=== PATIENT | male | born 1960 | race African-American/Black ===

== ENCOUNTER 2016-11-18 17:55 | Inpatient (IN) | payer OTHER, BC ==
[2016-11-18] MEDS ORDERED: NORMAL SALINE 1000 ML 2,000 ML IV PRN (18:26)
--- NOTE | 2016-11-18 18:28 | ER Document Report ---
ED Medical Screen (RME) - General Chief Complaint: High Blood Sugar Stated Complaint: BLOOD SUGAR PROBLEM Time Seen by Provider: 11/18/16 18:26 Notes: Patient states he went to the ME today because he is feeling weak. The ME told him that his doctor is not and I referred him to another office. That office noticed that his labs showed some acidosis and some ketones in the urine. They also noticed that his sugar was approximately 450 so he was sent to the emergency department for further evaluation. Patient denies vomiting or diarrhea just states she has been feeling weak. Denies any pain. TRAVEL OUTSIDE OF THE [place] IN LAST 30 DAYS: No - Related Data Allergies/Adverse Reactions: No Known Allergies Allergy (Verified 11/18/16 17:59) Past Medical History - Past Medical History Cardiac Medical History: Reports: Hx Hypertension Renal/ Medical History: Denies: Hx Peritoneal Dialysis Physical Exam - Vital signs Vitals: Temp Pulse Resp BP Pulse Ox 97.7 F 96 14 117/73 98 11/18/16 18:00 11/18/16 18:00 11/18/16 18:00 11/18/16 18:00 11/18/16 18:00 Course - Vital Signs Vital signs: Temp Pulse Resp BP Pulse Ox 97.7 F 96 14 117/73 98 11/18/16 18:00 11/18/16 18:00 11/18/16 18:00 11/18/16 18:00 11/18/16 18:00
[2016-11-18 18:57] LABS: ABSOLUTE BASOPHILS # (AUTO) 0.1 10^3/uL (0.0-0.2); ABSOLUTE LYMPHOCYTES (AUTO) 1.6 10^3/uL (0.5-4.7); ABSOLUTE MONOCYTES (AUTO) 0.7 10^3/uL (0.1-1.4); ABSOLUTE NEUT (AUTO) 5.8 10^3/uL (1.7-8.2); BASOPHILS % (AUTO) 0.9 % (0-2); EOSINOPHILS % (AUTO) 0.1 % (0-6); HEMATOCRIT 45.1 % (37.9-51.0); HEMOGLOBIN 15.2 g/dL (13.5-17.0); HGB HCT DIFFERENCE 0.5; LYMPHOCYTES % (AUTO) 19.1 % (13-45); MEAN CORPUSCULAR HGB CONC 33.7 g/dL (32.0-36.0); MEAN CORPUSCULAR VOLUME 80 fl (80-97); MONOCYTES % (AUTO) 8.7 % (3-13); RED BLOOD COUNT 5.63 10^6/uL (4.35-5.55); RED CELL DISTRIBUTION WIDTH 14.5 % (11.5-14.0); SEGMENTED NEUTROPHILS % (AUTO) 71.2 % (42-78); WHITE BLOOD COUNT 8.1 10^3/uL (4.0-10.5)
--- NOTE | 2016-11-18 19:21 | ER Document Report ---
ED Blood Sugar Problem <BEVERLEY CHOWDARY - Last Filed: 11/18/16 21:25> - General Mode of Arrival: Ambulatory Information source: Patient TRAVEL OUTSIDE OF THE [place] IN LAST 30 DAYS: No <HARRY BUTLER - Last Filed: 11/18/16 21:27> - General Chief Complaint: High Blood Sugar Stated Complaint: BLOOD SUGAR PROBLEM Time Seen by Provider: 11/18/16 18:26 Notes: Patient is a 56 year old male who presents to the ED with complaints of increased frequency with urination and an increase in thirst x3 weeks. Patient states today he began feeling nauseous. (HARRY BUTLER) - Related Data Allergies/Adverse Reactions: No Known Allergies Allergy (Verified 11/18/16 17:59) Past Medical History - General Information source: Patient - Social History Smoking Status: Never Smoker Chew tobacco use (# tins/day): No Frequency of alcohol use: None Drug Abuse: None Family History: Reviewed & Not Pertinent - Past Medical History Cardiac Medical History: Reports: Hx Hypercholesterolemia, Hx Hypertension Endocrine Medical History: Reports: Hx Diabetes Mellitus Type 2 Renal/ Medical History: Denies: Hx Peritoneal Dialysis - Immunizations Hx Diphtheria, Pertussis, Tetanus Vaccination: Yes <HARRY BUTLER - Last Filed: 11/18/16 21:27> Review of Systems - Review of Systems Constitutional: No symptoms reported EENT: No symptoms reported Cardiovascular: No symptoms reported Respiratory: No symptoms reported Gastrointestinal: See HPI, Nausea Genitourinary: See HPI, Frequency Male Genitourinary: No symptoms reported Musculoskeletal: No symptoms reported Skin: No symptoms reported Hematologic/Lymphatic: No symptoms reported Neurological/Psychological: No symptoms reported <HARRY BUTLER - Last Filed: 11/18/16 21:27> Physical Exam <BEVERLEY CHOWDARY - Last Filed: 11/18/16 21:25> <HARRY BUTLER - Last Filed: 11/18/16 21:27> - Vital signs Vitals: Temp Pulse Resp BP Pulse Ox 97.7 F 96 14 117/73 98 11/18/16 18:00 11/18/16 18:00 11/18/16 18:00 11/18/16 18:00 11/18/16 18:00 - Notes Notes: GENERAL: Well-appearing, well nourished and in no acute distress. HEAD: Normocephalic, atraumatic. Eyes: Pupils equal, round, and reactive to light. Extraocular movements intact. ENT: Oral mucosa moist, tongue midline. NECK: Full range of motion. Supple without lymphadenopathy. LUNGS: Clear to auscultation bilaterally, no wheezes, rales, or rhonchi. No respiratory distress. HEART: Regular rate and rhythm. No murmurs, gallops, or rubs. ABDOMEN: Soft, non-tender. Morbidly Obese. Bowel sounds present in all 4 quadrants. EXTREMITIES: Normal ROM. No Edema. NEUROLOGICAL: Alert and oriented x3. Normal speech. No focal neurological deficits. PSYCH: Normal affect, normal mood. SKIN: Warm, dry, normal turgor. No rashes or lesions noted. (HARRY BUTLER) Course - Laboratory Result Diagrams: 11/18/16 18:45 11/18/16 20:02 <BEVERLEY CHOWDARY - Last Filed: 11/18/16 21:25> - Laboratory Result Diagrams: 11/18/16 18:45 11/18/16 20:02 - Consults Dr. Deshpande Time consulted: 21:24 <HARRY BUTLER - Last Filed: 11/18/16 21:27> - Vital Signs Vital signs: Temp Pulse Resp BP Pulse Ox 97.7 F 96 25 H 112/73 95 11/18/16 18:00 11/18/16 18:00 11/18/16 19:37 11/18/16 19:37 11/18/16 19:37 - Laboratory Laboratory results interpreted by ri: 11/18/16 11/18/16 11/18/16 18:35 18:45 18:45 RBC 5.63 H RDW 14.5 H Sodium Chloride Carbon Dioxide Anion Gap Glucose Hemoglobin A1c % > 14.0 H Calcium Urine Glucose (UA) >=500 H Urine Ketones 80 H Urine Blood SMALL H 11/18/16 20:02 RBC RDW Sodium 132.9 L Chloride 96 L Carbon Dioxide 12 L Anion Gap 25 H Glucose 437 H* Hemoglobin A1c % Calcium 10.7 H Urine Glucose (UA) Urine Ketones Urine Blood - Consults Dr. Deshpande Reason for consultation: 11/18/16 21:24 Discussed patient. Patient is accepted for admission to the [facility] (HARRY BUTLER) Discharge - Discharge Admitting Provider: Hospitalist Unit Admitted: [facility] <BEVERLEY CHOWDARY - Last Filed: 11/18/16 21:25> <HARRY BUTLER - Last Filed: 11/18/16 21:27> - Discharge Clinical Impression: Diabetic ketoacidosis Qualifiers: Diabetes mellitus type: type 2 Diabetes mellitus complication detail: without coma Qualified Code(s): E13.10 - Other specified diabetes mellitus with ketoacidosis without coma Hyperglycemia due to type 2 diabetes mellitus Qualifiers: Diabetes mellitus terminal worker insulin use: without terminal worker use Qualified Code(s ): E11.65 - Type 2 diabetes mellitus with hyperglycemia Referrals: ANA MARIA DELVALLE MD [Primary Care Provider] - Follow up as needed Scribe Documentation - Scribe Written by Scribe:: latha Loving 11/18/2016, 1917 acting as scribe for :: Yue <HARRY BUTLER - Last Filed: 11/18/16 21:27>
[2016-11-18 19:37] LABS: APPEARANCE,URINE CLEAR; BILIRUBIN,URINE NEGATIVE (NEGATIVE); GLUCOSE, URINE >=500 mg/dL (NEGATIVE); KETONES,URINE 80 mg/dL (NEGATIVE); LEUKOCYTE ESTERASE,URINE NEGATIVE (NEGATIVE); NITRITE,URINE NEGATIVE (NEGATIVE); PROTEIN,URINE NEGATIVE (NEGATIVE); URINE SPECIFIC GRAVITY 1.029; UROBILINOGEN,URINE NEGATIVE mg/dL (<2.0)
[2016-11-18] MEDS ORDERED: INSULIN REG, HUMAN 100 UNIT/ML 3 ML VIAL (PYX) IV ONE (20:13)
[2016-11-18 20:39] LABS: ALANINE AMINOTRANSFERASE 38 U/L (21-72); ALBUMIN 4.4 g/dL (3.5-5.0); ALKALINE PHOSPHATASE 89 U/L (38-126); ASPARTATE AMINO TRANSFERASE 17 U/L (17-59); BILIRUBIN,DIRECT 0.4 mg/dL (0.0-0.4); BILIRUBIN,TOTAL 0.6 mg/dL (0.2-1.3); BLOOD UREA NITROGEN 18 mg/dL (7-20); CALCIUM 10.7 mg/dL (8.4-10.2); CARBON DIOXIDE 12 mmol/L (22-30); CHLORIDE 96 mmol/L (98-107); CREATININE RESULT 1.17 mg/dL (0.52-1.25); TOTAL PROTEIN 7.2 g/dL (6.3-8.2)
[2016-11-18 20:46] LABS: ANION GAP 25 (5-19); SODIUM 132.9 mmol/L (137-145)
[2016-11-18 20:47] LABS: GLUCOSE 437 mg/dL (75-110)
[2016-11-18] MEDS ORDERED: NORMAL SALINE 1000 ML 1,000 ML IV ONE (21:18)
[2016-11-18] MEDS ORDERED: DEXTROSE 40% GEL 15 GM TUBE PO PRN ×2 (21:29)
[2016-11-18] MEDS ORDERED: NORMAL SALINE 1000 ML 1,000 ML IV PRN (21:29)
[2016-11-18] MEDS ORDERED: NORMAL SALINE 100 ML with INSULIN REGULAR, HUMAN 100 UNIT IV PRN ×2 (21:29)
[2016-11-18] MEDS ORDERED: GLUCAGON,HUMAN RECOMB 1 MG INJ IM PRN (21:29)
[2016-11-18] MEDS ORDERED: DEXTROSE 50%-WATER 25 GM/50 ML DISP.SYRIN IV PRN ×2 (21:29)
[2016-11-18 21:32] LABS: ADD ON TESTING BLD IN LAB ACKNOWLEDGE
[2016-11-18 21:41] LABS: MAGNESIUM 1.8 mg/dL (1.6-2.3)
--- NOTE | 2016-11-18 22:08 | RADIOLOGY REPORT (SQ) ---
EXAM DESCRIPTION: CHEST SINGLE VIEW COMPLETED DATE/TIME: 11/18/2016 9:43 pm REASON FOR STUDY: dka COMPARISON: June 2012 EXAM PARAMETERS: NUMBER OF VIEWS: One view. TECHNIQUE: Single frontal radiographic view of the chest acquired. RADIATION DOSE: NA LIMITATIONS: None. FINDINGS: LUNGS AND PLEURA: No opacities, masses or pneumothorax. No pleural effusion. MEDIASTINUM AND HILAR STRUCTURES: No masses. Contour normal. HEART AND VASCULAR STRUCTURES: Heart normal in size. Normal vasculature. BONES: No acute findings. HARDWARE: None in the chest. OTHER: No other significant finding. IMPRESSION: NO ACUTE RADIOGRAPHIC FINDING IN THE CHEST. TECHNICAL DOCUMENTATION: JOB ID: [id number]
[2016-11-18] MEDS ORDERED: MAGNESIUM HYDROXIDE SUSP 30 ML UDCUP PO PRN (23:19)
[2016-11-18] MEDS ORDERED: ACETAMINOPHEN 325 MG TABLET PO PRN (23:19)
[2016-11-18] MEDS ORDERED: PROMETHAZINE HCL 25 MG TABLET PO PRN (23:21)
--- NOTE | 2016-11-18 23:46 | PDOC H&P ---
History of Present Illness Admission Date/PCP: 11/18/16 22:23 ANA MARIA DELVALLE MD and [facility] Patient complains of: Blood sugar problems History of Present Illness: RHONDA STEPHENS is a 56 year old morbidly obese type II diabetic - [place] male, with underlying hypertension, history of nephrolithiasis, hyperlipidemia, currently on no medication for same, with adverse reactions to both pravastatin and atorvastatin in the form of muscle aches, who presents to the emergency room for evaluation of a 2-3 week history of polyuria and polydipsia. Was [facility] the local [facility] on the , with a blood sugar between 4 and 500. Was referred to primary care provider for further follow-up. Was seen by his primary care provider today and sent to the emergency room for further evaluation and treatment. Takes Metformin thousand milligrams nightly. Compliant with his medication. No recent medication change. However, patient ran out of his Accu-Chek strips 2 weeks or so ago, and it has been several days since he last checked his blood sugar. Questionable fever, but no chills. No diarrhea or dysuria. Nausea but no vomiting. No chest or abdominal pain. No cough. No "sore spot" anywhere on his body or other area suspicious for infection. Describes recent weight loss. No prior hospital admission for uncontrolled blood sugar. Diagnosed with diabetes mellitus in 2013. Patient has been discussed with emergency room physician who evaluated the patient. . Dictation via voice recognition software. Laboratory results are listed in [employer] and are reviewed. X-ray summary results are listed below, with full report(s) reviewed. . EKG reviewed. Social history/personal habits: . 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 No use of alcohol tobacco or illicit drugs. No known drug allergies. Home medications initially autopopulated into [facility] may not accurately reflect patient's true medications, dosages, and/or frequencies. boiler technician to reconcile medications. Unfortunately, patient not certain of all medications/dosages/frequencies. REVIEW OF SYSTEMS: Constitutional: See history and present illness. Eyes: Wears glasses. ENT: No swallowing problems or complaints. Denies hearing loss. Pulmonary: No current complaints. Cardiovascular: No current complaints, including chest pain. Gastrointestinal: See history and present illness. Skin: No current complaints, including rashes. Hematologic: Denies easy bruising. Neurologic: No current complaints, including numbness or tingling. Musculoskeletal: Poorly healing "avulsion fractures," according to patient, where his Achilles tendons attach to his calcaneus , particularly on the left. Wears an AFO splint on the left. Psychiatric: Denies anxiety or depression. Endocrine: See history and present illness. Genitourinary: See history and present illness. PHYSICAL EXAMINATION: 5 feet 9 inches tall. 129.7 kg. BMI 42.2 kg/m. Blood pressure 115/71. Pulse 88 and regular. 98% saturation on room air. Respirations are 17 and unlabored. Temperature 97.7. Morbidly obese otherwise well developed -[place] male appearing a bit younger than his stated age. Pleasant awake alert and cooperative. No obvious distress other than perhaps mildly anxious. Skin is warm and dry. No grossly obvious evidence of rash in areas of skin examined. No subcutaneous nodules palpated. ENT: Hearing grossly normal to normal conversation. Tongue midline on protrusion pink and moist. Eyes: No scleral icterus. Pupils equal and reactive to light at 4 mm. Kerr conjunctivae. Neck is supple and nontender to gentle active range of motion and palpation. Midline trachea. No palpable thyroid nodule mass enlargement or tenderness. Lymphatic: No palpable cervical or clavicular nodes. Neck and lymphatic exams limited by patient body habitus. Psychiatric: Reasonable insight into acute and chronic medical issues. Oriented to time location and why here. Lungs: Auscultation reveals clear and equal breath sounds bilaterally. No use of accessory respiratory muscles. Cardiovascular: Heart regular rate and rhythm, without gallop murmur or rub. No carotid or abdominal aortic bruits. No ankle or pedal edema. Faintly palpable dorsalis pedis pulses. Abdomen:soft obese nontender with positive bowel sounds. Unable to adequately evaluate abdomen for masses or organomegaly due to body habitus. Extremities: Feet are warm and dry. No calf tenderness to compression. No grossly obvious visual evidence of calf swelling. Gentle manipulation of lower extremities fails to reveal any obvious evidence of injury or instability to knees hips or ankles. Neurologic: Moves upper extremities grossly normally. Patellar reflexes absent. Absent Babinski. Light touch is intact at feet. Dorsiflexion and plantarflexion of feet 5 / 5 and symmetric. Past Medical History Cardiac Medical History: Reports: Hyperlipidema, Hypertension Denies: Atrial Fibrillation, Congestive Heart Failure, Coronary Artery Disease, DVT, Myocardial Infarction, Pulmonary Embolism Pulmonary Medical History: Denies: Asthma, Chronic Obstructive Pulmonary Disease (COPD), Sleep Apnea EENT Medical History: Reports: Eyes - Glasses Denies: Ears, Throat Neurological Medical History: Denies: Hemorrhagic CVA, Ischemic CVA, Seizures Endocrine Medical History: Reports: Diabetes Mellitus Type 2 Denies: Diabetes Mellitus Type 1, Hyperthyroidism, Hypothyroidism Renal/ Medical History: Reports: Nephrolithiasis - History of GI Medical History: Denies: Cirrhosis, Gastroesophageal Reflux Disease, Hepatitis, Peptic Ulcer Disease Musculoskeltal Medical History: Reports: Other - Poorly healing avulsion fractures where Achilles tendons attach to calcaneus. Skin Medical History: Reports: None Psychiatric Medical History: Denies: Alcohol Dependency, Depression, General Anxiety Disorder, Substance Abuse, Tobacco Dependency Hematology: Reports: None Infectious Medical History: Denies: Hepatitis B, Hepatitis C Past Surgical History Past Surgical History: Reports: None Social History Information Source: Patient, Emergency Med Personnel, [facility] Records Lives with: Spouse/Significant other Smoking Status: Unknown if Ever Smoked Frequency of Alcohol Use: None Drugs: None - Advance Directive Resuscitation Status: Full Code Surrogate healthcare decision maker:: Family History Family History: Reviewed & Not Pertinent Parental Family History Reviewed: Yes - Mother of cancer, father of old age Children Family History Reviewed: NA Sibling(s) Family History Reviewed.: Yes - Diabetic Medication/Allergy Home Medications: Amlodipine Besylate [Norvasc 10 mg Tablet] 10 mg PO DAILY 11/19/16 Hydrochlorothiazide 25 mg PO DAILY 11/19/16 Losartan Potassium [Cozaar 100 mg Tablet] 100 mg PO DAILY 11/19/16 Potassium Chloride [Klor-Con 10 Meq Tablet.sa] 20 meq PO DAILY 11/19/16 Alcohol Antiseptic Pads [Alcohol Pads] 1 pad TP PRN PRN #1 pkg 11/20/16 Insulin Glargine,Hum.rec.anlog [Lantus Insulin 100 Unit/1 ml 10 ml] 35 unit SUBCUT QAM #1 unit 11/20/16 Insulin Glargine,Hum.rec.anlog [Lantus Insulin 100 Unit/1 ml 10 ml] 40 unit SUBCUT QHS #1 unit 11/20/16 Insulin Lispro [Humalog Insulin (Lispro) 100 unit/mL] 5 unit SUBCUT AC #1 unit 11/20/16 Metformin HCl [Glucophage] 1,000 mg PO BID #60 tablet 11/20/16 Pen Needle, Diabetic [Insulin Pen Needle] 1 each ASDIR PRN #1 dis.needle 06/07 Allergies/Adverse Reactions: No Known Allergies Allergy (Verified 11/18/16 17:59) Physical Exam Vital Signs: Temp Pulse Resp BP Pulse Ox 97.7 F 96 14 119/73 99 11/18/16 18:00 11/18/16 18:00 11/18/16 23:01 11/18/16 23:01 11/18/16 23:01 Results Impressions: Chest X-Ray 11/18/16 00:00 IMPRESSION: NO ACUTE RADIOGRAPHIC FINDING IN THE CHEST. Assessment & Plan - Diagnosis (1) DVT prophylaxis Is this a current diagnosis for this admission?: Yes (2) Diabetic ketoacidosis Qualifiers: Diabetes mellitus type: type 2 Diabetes mellitus complication detail: without coma Qualified Code(s): E13.10 - Other specified diabetes mellitus with ketoacidosis without coma Is this a current diagnosis for this admission?: YesPlan: Patient will be admitted under DKA protocol. Insulin drip. Vigorous fluid hydration. Q 4 hours chemistry 7. Hourly Accu-Cheks. Addition of dextrose to intravenous fluid once serum glucose and/or Accu-Cheks 275 or less. Patient is full code. I have strongly encouraged patient to be careful getting out of bed without notifying staff, to avoid a fall with injury. Knee high SCDs for DVT prophylaxis, along with subcutaneous heparin. Impression and plans were discussed with patient , who concurs. Time spent in evaluation and management of patient: 70 (3) HLD (hyperlipidemia) Qualifiers: Hyperlipidemia type: unspecified Qualified Code(s): E78.5 - Hyperlipidemia, unspecified Is this a current diagnosis for this admission?: YesPlan: Outpatient follow-up and management. (4) HTN (hypertension) Qualifiers: Hypertension type: essential hypertension Qualified Code(s): I10 - Essential (primary) hypertension Is this a current diagnosis for this admission?: YesPlan: Resume home medications as appropriate once these have been determined and reviewed. (5) Morbid obesity with BMI of 40.0-44.9, adult Is this a current diagnosis for this admission?: YesPlan: Dietary consult - Time Time Spent: 50 to 70 Minutes Anticipated discharge: Home Within: within 72 hours - Inpatient Certification Based on my medical assessment, after consideration of the patient's comorbidities, presenting symptoms, or acuity I expect that the services needed warrant INPATIENT care.: Yes I certify that my determination is in accordance with my understanding of Medicare's requirements for reasonable and necessary INPATIENT services [42 CFR 412.3e].: Yes Medical Necessity: Need Close Monitoring Due to Risk of Patient Decompensation, Need For IV Fluids, Risk of Complication if Not Cared For in Hospital Post Hospital Care: D/C or Transfer Summary
[2016-11-19 00:44] LABS: BLOOD UREA NITROGEN 16 mg/dL (7-20); CALCIUM 9.5 mg/dL (8.4-10.2); CHLORIDE 104 mmol/L (98-107); GLUCOSE 295 mg/dL (75-110)
[2016-11-19 00:56] LABS: CARBON DIOXIDE 13 mmol/L (22-30); POTASSIUM 4.8 mmol/L (3.6-5.0); SODIUM 137.4 mmol/L (137-145)
[2016-11-19 00:59] LABS: ANION GAP 20 (5-19)
[2016-11-19] MEDS: DEXTROSE 5%-NORMAL SALINE 1,000 ML IV PRN ×4 (02:27→14:40)
[2016-11-19 04:43] LABS: ANION GAP 16 (5-19); BLOOD UREA NITROGEN 15 mg/dL (7-20); CALCIUM 8.9 mg/dL (8.4-10.2); CARBON DIOXIDE 15 mmol/L (22-30); CHLORIDE 107 mmol/L (98-107); CREATININE RESULT 0.76 mg/dL (0.52-1.25); GLUCOSE 185 mg/dL (75-110); SODIUM 137.8 mmol/L (137-145)
[2016-11-19] MEDS: HEPARIN SOD (PORCINE) 5,000 UNIT/ML 1 ML SYRINGE SUBCUT SCH ×3 (05:57→21:54)
[2016-11-19] MEDS ORDERED: NORMAL SALINE 1000 ML 2,000 ML IV ONE (07:21)
--- NOTE | 2016-11-19 08:06 | EKG REPORT ---
SEVERITY:- OTHERWISE NORMAL ECG - SINUS RHYTHM LEFT AXIS DEVIATION : Confirmed by: Santos Cameron MD 19-Nov-2016 08:06:27
[2016-11-19 08:21] LABS: ANION GAP 12 (5-19); BLOOD UREA NITROGEN 13 mg/dL (7-20); CALCIUM 8.7 mg/dL (8.4-10.2); CARBON DIOXIDE 19 mmol/L (22-30); CHLORIDE 108 mmol/L (98-107); CREATININE RESULT 0.76 mg/dL (0.52-1.25); GLUCOSE 139 mg/dL (75-110); POTASSIUM 3.7 mmol/L (3.6-5.0)
[2016-11-19] MEDS: DOCUSATE SODIUM 100 MG CAPSULE PO SCH ×2 (10:17→17:04)
[2016-11-19 12:37] LABS: ANION GAP 10 (5-19); BLOOD UREA NITROGEN 12 mg/dL (7-20); CARBON DIOXIDE 20 mmol/L (22-30); CHLORIDE 110 mmol/L (98-107); CREATININE RESULT 0.71 mg/dL (0.52-1.25); GLUCOSE 105 mg/dL (75-110); POTASSIUM 3.6 mmol/L (3.6-5.0); SODIUM 140.1 mmol/L (137-145)
[2016-11-19] MEDS ORDERED: INSULIN GLARGINE,HUM.REC.ANLOG 1,000 UNIT/10 ML UNIT SUBCUT ONE (14:48)
[2016-11-19] MEDS ORDERED: POTASSIUM CHLORIDE 10 MEQ TABLET.SA PO ONE (14:52)
--- NOTE | 2016-11-19 15:07 | PDOC PROGRESS REPORT ---
Subjective Progress Note for:: 11/19/16 Subjective:: Patient reports noncompliance with his diet regimen in recent months. He also reports that he has not been checking his blood sugar at home. He does admit to polydipsia, polyuria and polyphagia. Reports nausea has improved. Patient denies chest pain, shortness of breath, abdominal pain, vomiting, fevers , chills, diarrhea, constipation, headache, new onset weakness. Physical Exam Vital Signs: Temp Pulse Resp BP Pulse Ox 98.4 F 76 18 110/63 99 11/19/16 04:34 11/19/16 04:34 11/19/16 04:34 11/19/16 04:34 11/19/16 04:34 Intake & Output 11/18/16 11/19/16 11/20/16 06:59 06:59 06:59 Intake Total 2138 Output Total 1100 Balance 1038 Weight 132 kg Exam: General: Morbidly obese, awake alert and oriented x3, no acute respiratory distress HEENT: AT/NC, PERRL, EOMI, oropharynx is moist, pink, no scleral icterus, no conjunctival injection Neck: No JVD, trachea midline Chest: Clear to auscultation bilaterally, no wheezes rhonchi or rales CV: Regular rate and rhythm, normal S1 and S2, no murmur, rub, or gallop Abdomen: Soft, nontender to palpation, nondistended, active bowel sounds; no rebound, rigidity, or guarding Extremities: No cyanosis, clubbing or edema Neuro: Cranial nerves II through XII are grossly intact without focal deficits; awake alert and oriented x3 Psych: Normal mood and affect Skin: Acanthosis nigricans Results Laboratory Results: 11/19/16 03:52 11/19/16 11/19/16 00:12 03:52 Sodium 137.4 137.8 Potassium 4.8 4.0 Chloride 104 107 Carbon Dioxide 13 L 15 L Anion Gap 20 H 16 BUN 16 15 Creatinine 1.00 0.76 Est GFR ( Amer) > 60 > 60 Est GFR (Non-Af Amer) > 60 > 60 Glucose 295 H 185 H Calcium 9.5 8.9 Impressions: Chest X-Ray 11/18/16 00:00 IMPRESSION: NO ACUTE RADIOGRAPHIC FINDING IN THE CHEST. Assessment & Plan - Diagnosis (1) Diabetic ketoacidosis Qualifiers: Diabetes mellitus type: type 2 Diabetes mellitus complication detail: without coma Qualified Code(s): E13.10 - Other specified diabetes mellitus with ketoacidosis without coma Is this a current diagnosis for this admission?: YesPlan: Continue patient on insulin drip per protocol and every 4 hours BMP. 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 Hemoglobin A1c of greater than 14. Will initiate patient on Lantus 35 units subcu nightly and 5 units of lispro q. before meals. Plan to reinitiate patient's metformin and obtain a.m. C-peptide and insulin level. Complications of diabetes have been discussed with patient including vascular disease, retinopathy, nephropathy, need for amputation. anodiser has been consulted. (2) Diabetes mellitus type 2 in obese Is this a current diagnosis for this admission?: YesPlan: Poorly controlled currently with DKA. See above. (3) HLD (hyperlipidemia) Qualifiers: Hyperlipidemia type: unspecified Qualified Code(s): E78.5 - Hyperlipidemia, unspecified Is this a current diagnosis for this admission?: YesPlan: Defer to primary care physician for treatment (4) HTN (hypertension) Qualifiers: Hypertension type: essential hypertension Qualified Code(s): I10 - Essential (primary) hypertension Is this a current diagnosis for this admission?: YesPlan: Resume patient's home Norvasc, hydrochlorothiazide, and Cozaar. (5) Morbid obesity with BMI of 40.0-44.9, adult Is this a current diagnosis for this admission?: Yes (6) DVT prophylaxis Is this a current diagnosis for this admission?: Yes - Time Time Spent with patient: 25-34 minutes Medications reviewed and adjusted accordingly: Yes Anticipated discharge: Home Within: within 24 hours - Inpatient Certification Based on my medical assessment, after consideration of the patient's comorbidities, presenting symptoms, or acuity I expect that the services needed warrant INPATIENT care.: Yes I certify that my determination is in accordance with my understanding of Medicare's requirements for reasonable and necessary INPATIENT services [42 CFR 412.3e].: Yes Medical Necessity: Need For IV Fluids, Risk of Complication if Not Cared For in Hospital 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
[2016-11-19 16:15] LABS: ANION GAP 9 (5-19); BLOOD UREA NITROGEN 11 mg/dL (7-20); CALCIUM 8.2 mg/dL (8.4-10.2); CARBON DIOXIDE 20 mmol/L (22-30); CHLORIDE 109 mmol/L (98-107); CREATININE RESULT 0.72 mg/dL (0.52-1.25); GLUCOSE 146 mg/dL (75-110); POTASSIUM 3.8 mmol/L (3.6-5.0); SODIUM 138.1 mmol/L (137-145)
[2016-11-19] MEDS: INSULIN LISPRO 100 UNIT/ML 3 ML VIAL SUBCUT SCH (16:55)
[2016-11-19] MEDS: INSULIN LISPRO 100 UNIT/ML 3 ML VIAL SUBCUT PRN ×4 (18:26→21:54)
[2016-11-19 20:27] LABS: ANION GAP 8 (5-19); BLOOD UREA NITROGEN 11 mg/dL (7-20); CALCIUM 8.3 mg/dL (8.4-10.2); CARBON DIOXIDE 19 mmol/L (22-30); CHLORIDE 108 mmol/L (98-107); CREATININE RESULT 0.73 mg/dL (0.52-1.25); GLUCOSE 219 mg/dL (75-110); POTASSIUM 3.9 mmol/L (3.6-5.0); SODIUM 135.2 mmol/L (137-145)
[2016-11-20 05:40] LABS: ANION GAP 9 (5-19); BLOOD UREA NITROGEN 10 mg/dL (7-20); CALCIUM 8.5 mg/dL (8.4-10.2); CARBON DIOXIDE 18 mmol/L (22-30); CHLORIDE 108 mmol/L (98-107); CREATININE RESULT 0.75 mg/dL (0.52-1.25); GLUCOSE 224 mg/dL (75-110); POTASSIUM 3.8 mmol/L (3.6-5.0); SODIUM 135.3 mmol/L (137-145)
[2016-11-20] MEDS: HEPARIN SOD (PORCINE) 5,000 UNIT/ML 1 ML SYRINGE SUBCUT SCH (05:41)
[2016-11-20] MEDS ORDERED: NORMAL SALINE 1000 ML 2,000 ML IV ONE (07:43)
[2016-11-20] MEDS ORDERED: NORMAL SALINE 1000 ML 1,000 ML IV PRN (07:44)
[2016-11-20 08:00] VITALS: BP 140/76
[2016-11-20] MEDS ORDERED: INSULIN GLARGINE,HUM.REC.ANLOG 1,000 UNIT/10 ML UNIT SUBCUT ONE (08:30)
[2016-11-20] MEDS: INSULIN LISPRO 100 UNIT/ML 3 ML VIAL SUBCUT SCH ×2 (08:31→11:58)
[2016-11-20] MEDS: INSULIN LISPRO 100 UNIT/ML 3 ML VIAL SUBCUT PRN (08:32)
[2016-11-20] MEDS ORDERED: AMLODIPINE BESYLATE 10 MG TABLET PO SCH (10:00)
[2016-11-20] MEDS ORDERED: LOSARTAN POTASSIUM 50 MG TABLET PO SCH (10:00)
[2016-11-20] MEDS ORDERED: POTASSIUM CHLORIDE 10 MEQ TABLET.SA PO SCH (10:00)
[2016-11-20] MEDS: DOCUSATE SODIUM 100 MG CAPSULE PO SCH (10:55)
--- NOTE | 2016-11-20 20:25 | PDOC DISCHARGE SUMMARY ---
General - Admit/Disc Date/PCP Admission Date/Primary Care Provider: 11/18/16 23:19 ANA MARIA DELVALLE MD Discharge Date: 11/20/16 - Discharge Diagnosis (1) Diabetic ketoacidosis Is this a current diagnosis for this admission?: Yes (2) Diabetes mellitus type 2 in obese Is this a current diagnosis for this admission?: Yes (3) HLD (hyperlipidemia) Is this a current diagnosis for this admission?: Yes (4) HTN (hypertension) Is this a current diagnosis for this admission?: Yes (5) Morbid obesity with BMI of 40.0-44.9, adult Is this a current diagnosis for this admission?: Yes - Additional Information Resuscitation Status: Full Code Discharge Diet: Cardiac, Diabetic Discharge Activity: Activity As Tolerated Home Medications: Amlodipine Besylate [Norvasc 10 mg Tablet] 10 mg PO DAILY 11/19/16 Hydrochlorothiazide 25 mg PO DAILY 11/19/16 Losartan Potassium [Cozaar 100 mg Tablet] 100 mg PO DAILY 11/19/16 Potassium Chloride [Klor-Con 10 Meq Tablet.sa] 20 meq PO DAILY 11/19/16 Alcohol Antiseptic Pads [Alcohol Pads] 1 pad TP PRN PRN #1 pkg 11/20/16 Insulin Glargine,Hum.rec.anlog [Lantus Insulin 100 Unit/1 ml 10 ml] 35 unit SUBCUT QAM #1 unit 11/20/16 Insulin Glargine,Hum.rec.anlog [Lantus Insulin 100 Unit/1 ml 10 ml] 40 unit SUBCUT QHS #1 unit 11/20/16 Insulin Lispro [Humalog Insulin (Lispro) 100 unit/mL] 5 unit SUBCUT AC #1 unit 11/20/16 Metformin HCl [Glucophage] 1,000 mg PO BID #60 tablet 11/20/16 Pen Needle, Diabetic [Insulin Pen Needle] 1 each MC ASDIR PRN #1 dis.needle 06/07 History of Present Illness History of Present Illness: RHONDA STEPHENS is a 56 year old male morbidly obese type II diabetic -Turkish male, with underlying hypertension, history of nephrolithiasis, hyperlipidemia, currently on no medication for same, with adverse reactions to both pravastatin and atorvastatin in the form of muscle aches, who presents to the emergency room for evaluation of a 2-3 week history of polyuria and polydipsia. Was seen at the local [place] clinic on the , with a blood sugar between 4 and 500. Was referred to primary care provider for further follow-up. Was seen by his primary care provider today and sent to the emergency room for further evaluation and treatment. Metformin thousand milligrams nightly. Compliant with his medication. No recent medication change. However, patient ran out of his Accu-Chek strips 2 weeks or so ago, and it has been several days prior to today before he checked his blood sugar. Questionable fever, but no chills. No diarrhea or dysuria. Nausea but no vomiting. No chest or abdominal pain. No cough. No "sore spot" anywhere on his body or other area suspicious for infection. Describes recent weight loss. No prior hospital admission for uncontrolled blood sugar. Diagnosed with diabetes mellitus in 2013. Patient has been discussed with emergency room physician who evaluated the patient. . Hospital Course Hospital Course: Patient was placed on insulin drip and given IV fluids and quickly transitioned off. Patient was found to have hemoglobin A1c greater than 14. Patient admitted to dietary indiscretion. Patient transitioned to Lantus and metformin. He is strongly advised to follow-up with his primary care physician. He also reports he had not been taking his blood sugar at home. He has been advised to take his blood sugar 4 times daily. Patient has been advised about the complications of uncontrolled diabetes mellitus including blindness, kidney failure, early vessel disease, and loss of limb, and early . Physical Exam Vital Signs: Temp Pulse Resp BP Pulse Ox 97.7 F 77 19 140/76 H 100 11/20/16 11:09 11/20/16 11:09 11/20/16 11:09 11/20/16 07:50 11/20/16 11:09 Intake & Output 11/19/16 11/20/16 11/21/16 06:59 06:59 06:59 Intake Total 2138 6121 Output Total 1100 400 Balance 1038 5721 Weight 132 kg 132 kg Exam: General: Morbidly obese, awake alert and oriented x3, no acute respiratory distress HEENT: AT/NC, PERRL, EOMI, oropharynx is moist, pink, no scleral icterus, no conjunctival injection Neck: No JVD, trachea midline Chest: Clear to auscultation bilaterally, no wheezes rhonchi or rales CV: Regular rate and rhythm, normal S1 and S2, no murmur, rub, or gallop Abdomen: Soft, nontender to palpation, nondistended, active bowel sounds; no rebound, rigidity, or guarding Extremities: No cyanosis, clubbing or edema Neuro: Cranial nerves II through XII are grossly intact without focal deficits; awake alert and oriented x3 Psych: Normal mood and affect Skin: Acanthosis nigricans Results Laboratory Results: 11/20/16 04:50 11/19/16 11/20/16 19:57 04:50 Sodium 135.2 L 135.3 L Potassium 3.9 3.8 Chloride 108 H 108 H Carbon Dioxide 19 L 18 L Anion Gap 8 9 BUN 11 10 Creatinine 0.73 0.75 Est GFR ( Amer) > 60 > 60 Est GFR (Non-Af Amer) > 60 > 60 Glucose 219 H 224 H Calcium 8.3 L 8.5 Impressions: Chest X-Ray 11/18/16 00:00 IMPRESSION: NO ACUTE RADIOGRAPHIC FINDING IN THE CHEST. Qualifiers PATEINT BEING DISCHARGED WITH ANY OF THE FOLLOWING DIAGNOSIS?: No Plan Time Spent: Less than 30 Minutes
== END 2016-11-20 12:21 | disposition home or self-care (01) | DRG 638 ==
LOC: ER 17:55 → UNDOADMIN 22:23 → EH 22:23 → 3N 23:38 → EH 23:38
PROVIDERS: ADMIT Family Medicine; ATTEND Family Medicine
DX: E13.10 Other specified diabetes mellitus with ketoacidosis without coma (principal); Z68.41 Body mass index [BMI] 40.0-44.9, adult; E66.01 Morbid (severe) obesity due to excess calories; E78.5 Hyperlipidemia, unspecified; I10 Essential (primary) hypertension; N20.0 Calculus of kidney; Z79.4 Long term (current) use of insulin; Z79.899 Other long term (current) drug therapy; Z80.9 Family history of malignant neoplasm, unspecified; Z83.3 Family history of diabetes mellitus
CPT/HCPCS: 36415; 71010; 80048; 80053; 81001; 82962; 83036; 83735; 84484; 85025; 93005; 93010; 96360; 99285; J1644; J1815; J3490; J7030

== ENCOUNTER 2018-11-30 08:43 | Emergency (ER) | payer OTHER, BC ==
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
[2018-11-30 10:25] VITALS: BP 131/80
== END 2018-11-30 10:28 | disposition home or self-care (01) ==
LOC: ER 08:43
DX: M54.2 Cervicalgia (principal); M54.9 Dorsalgia, unspecified; V43.52XA Car driver injured in collision with other type car in traffic accident, initial encounter; E78.00 Pure hypercholesterolemia, unspecified; I10 Essential (primary) hypertension; E11.9 Type 2 diabetes mellitus without complications
CPT/HCPCS: 72070; 72100; 99283